=== PATIENT | female | born 1990 | race Caucasian/White ===

== ENCOUNTER → 2017-06-15 | Outpatient (CLI) | payer OTHER ==
--- NOTE | 2017-06-15 11:33 | RAD ---
Transabdominal and transvaginal sonography of the pelvis Clinical indications: Left ovarian cyst follow-up study. Comparison: March 04, 2017 performed at [facility]. Transabdominal sonography: The uterus is anteverted in position. The longitudinal and AP and transverse dimensions of the uterus are 7.7 cm and 3.5 cm and 5.0 cm respectively. The endometrial canal measures 11 mm in thickness. The left ovary is normal and measures 3.3 cm and 1.8 cm and 2.6 cm in size. Color Doppler flow is seen within the left ovary. The right ovary measures 3.1 cm and 1.4 cm and 1.6 cm in size and is normal. Color Doppler flow is seen within the right ovary. No adnexal mass is seen. Transvaginal sonography: The endometrial canal measures 10 mm in thickness and demonstrates the secretory phase appearance of the menstrual cycle. No uterine mass or fibroid is seen. A small amount of physiologic free fluid is seen within the cul-de-sac. Neither ovary was visualized by transvaginal exam but the patient did not tolerate the transvaginal exam while trying to visualize the ovaries today. IMPRESSION: Both ovaries appear normal. Therefore, the left ovarian cyst seen previously has resolved.
== END | disposition home or self-care (01) ==
LOC: US 08:12
PROVIDERS: ATTEND Obstetrics & Gynecology
DX: N83.202 Unspecified ovarian cyst, left side (principal)
CPT/HCPCS: 76830; 76856

== ENCOUNTER 2017-12-27 16:55 | Emergency (ER) | payer OTHER, BC ==
[~2017-12-27] VITALS: Ht 165.1 cm; Wt 71.2 kg
[2017-12-27] MEDS ORDERED: PRED20TA PO (17:24)
--- NOTE | 2017-12-27 17:24 | PHYS DOC ---
Adult General Chief Complaint Chief Complaint: Neck Pain HPI HPI Patient is a [age] year old [sex] who presents with [] Review of Systems Review of Systems Constitutional: Denies fever or chills [] Eyes: Denies change in visual acuity, redness, or eye pain [] HENT: Denies nasal congestion or sore throat [] Respiratory: Denies cough or shortness of breath [] Cardiovascular: No additional information not addressed in HPI [] GI: Denies abdominal pain, nausea, vomiting, bloody stools or diarrhea [] : Denies dysuria or hematuria [] Musculoskeletal: Denies back pain or joint pain [] Integument: Denies rash or skin lesions [] Neurologic: Denies headache, focal weakness or sensory changes [] Endocrine: Denies polyuria or polydipsia [] All other systems were reviewed and found to be within normal limits, except as documented in this note. Allergies Allergies Allergies Coded Allergies Type Severity Reaction Last Updated Verified No Known Drug Allergies 12/27/17 No Physical Exam Physical Exam Constitutional: Well developed, well nourished, no acute distress, non-toxic appearance. [] HENT: Normocephalic, atraumatic, bilateral external ears normal, oropharynx moist, no oral exudates, nose normal. [] Eyes: PERRLA, EOMI, conjunctiva normal, no discharge. [] Neck: Normal range of motion, no tenderness, supple, no stridor. [] Cardiovascular:Heart rate regular rhythm, no murmur [] Lungs & Thorax: Bilateral breath sounds clear to auscultation [] Abdomen: Bowel sounds normal, soft, no tenderness, no masses, no pulsatile masses. [] Skin: Warm, dry, no erythema, no rash. [] Back: No tenderness, no CVA tenderness. [] Extremities: No tenderness, no cyanosis, no clubbing, ROM intact, no edema. [] Neurologic: Alert and oriented X 3, normal motor function, normal sensory function, no focal deficits noted. [] Psychologic: Affect normal, judgement normal, mood normal. [] EKG EKG [] Radiology/Procedures Radiology/Procedures [] Course & Med Decision Making Course & Med Decision Making Pertinent Labs and Imaging studies reviewed. (See chart for details) [] Dragon Disclaimer Dragon Disclaimer This electronic medical record was generated, in whole or in part, using a voice recognition dictation system. Departure Departure: Impression: Primary Impression: Pharyngitis Disposition: 01 HOME, SELF-CARE Condition: STABLE Referrals: ISATU SCOTT (PCP) Patient Instructions: Viral and Bacterial Pharyngitis, [id number] Scripts Prednisone (PREDNISONE) 20 Mg Tablet 2 TAB PO DAILY, #8 TAB Start on Thursday12/28/17 Prov: DARIEL LYN DO 12/27/17 Problem Qualifiers Primary Impression: Pharyngitis Pharyngitis/tonsillitis etiology: unspecified etiology Qualified Codes: J02.9 - Acute pharyngitis, unspecified DARIEL LYN DO Dec 27, 2017 17:24
[2017-12-27] MEDS ORDERED: DEXAMETHASONE 4 MG TABLET PO ONE (17:30)
[2017-12-27 18:17] LABS: MONONUCLEOSIS PATIENT NEGATIVE (NEGATIVE)
[2017-12-27 18:35] VITALS: BP 116/72
== END 2017-12-27 18:31 | disposition home or self-care (01) ==
LOC: ER 16:55
DX: J02.9 Acute pharyngitis, unspecified (principal); M54.2 Cervicalgia
CPT/HCPCS: 86308; 87070; 87880; 99284; J8540